=== PATIENT | female | born 1960 | race Caucasian/White ===

== ENCOUNTER 2017-01-25 08:00 | Emergency (ER) | payer MEDICARE ==
[2017-01-25 08:50] VITALS: BP 170/81
[2017-01-25] MEDS ORDERED: BSS OPTH.SOL* BTL OPHTHALMIC ONE (09:05)
[2017-01-25] MEDS ORDERED: Fluorescein Sodium TOPICAL* 1 MG TEST OPHTHALMIC ONE (09:05)
--- NOTE | 2017-01-25 09:13 | UC ---
Eye Complaint HPI - HPI Summary HPI Summary: complaint of wakng up 4 days ago and had difficulty taking out her contacts since then her left eye has been itchy purulent discharge sometimes feels like something is in her left eye right eye redness started yesterday using a warm compress without relief denies vision changes hasn't been wearting contact lenses - History of Current Complaint Chief Complaint: UCEye Stated Complaint: EYE COMPLAINT Time Seen by Provider: 01/25/17 09:05 Hx Obtained From: Patient Hx Last Menstrual Period: hysterectomy - Allergies/Home Medications Allergies/Adverse Reactions: Allergies Allergy/AdvReac Type Severity Reaction Status Date / Time Codeine Allergy Nausea And Verified 04/11/16 07:51 Vomiting Home Medications: Home Medications Polyvinyl Alcohol-Povidone (Op [Refresh 1.4-0.6 %] 01/25/17 [History] PMH/Surg Hx/FS Hx/Imm Hx Previously Healthy: Yes Endocrine History Of: Reports: Thyroid Disease Denies: Diabetes Cardiovascular History Of: Denies: Cardiac Disorders, Hypertension Respiratory History Of: Denies: COPD, Asthma, Pneumonia, Pulmonary Embolism GI/ History Of: Denies: Ulcer, Kidney Stones Neurological History Of: Reports: Migraine Denies: TIA, CVA, Dementia, Seizures Psychological History Of: Reports: Anxiety, Depression, Bipolar Disorder Denies: Schizophrenia Cancer History Of: Denies: Lung Cancer, Breast Cancer Other History Of: Negative For: Anticoagulant Therapy - Surgical History Surgical History: Yes Surgery Procedure, Year, and Place: hysterectomy breast augmentation. CHEST TUBE FOR PNEUMOTHORAX - Family History Known Family History: Positive: Unknown, Hypertension - Social History Occupation: Employed Full-time Lives: With Family Alcohol Use: None Alcohol Amount: 8 months sober Substance Use Type: None Substance Use Comment - Amount & Last Used: 10 MONTHS SOBER OF 04/02/16 Smoking Status (MU): Current Every Day Smoker Type: Cigarettes Amount Used/How Often: 2 ppd Length of Time of Smoking/Using Tobacco: 40 years Have You Smoked in the Last Year: Yes Household Exposure Type: Cigarettes Cessation Counseling: Patient Advised to Stop - Immunization History Most Recent Influenza Vaccination: 3 + years ago Most Recent Tetanus Shot: <5 YEARS ( OF 04/02/16) Most Recent Pneumonia Vaccination: n/a Review of Systems Constitutional: Negative Skin: Negative Eyes: Drainage, Eye Redness, Photophobia ENT: Negative Respiratory: Negative Cardiovascular: Negative Gastrointestinal: Negative Genitourinary: Negative Motor: Negative Neurovascular: Negative Musculoskeletal: Negative Neurological: Negative Psychological: Negative All Other Systems Reviewed And Are Negative: Yes Physical Exam Triage Information Reviewed: Yes Appearance: No Pain Distress, Well-Nourished Vital Signs: Initial Vital Signs Temp 98.1 F 01/25/17 08:34 Pulse 67 01/25/17 08:34 Resp 16 01/25/17 08:34 BP 170/81 01/25/17 08:34 Pulse Ox 99 01/25/17 08:34 Vital Signs Reviewed: Yes Eyes: Positive: Conjunctiva Inflamed - bilateral, Discharge, Other: - left eye- observed under fluoriscene- 3mm abrasion on cornea ENT: Positive: Pharynx normal, TMs normal Respiratory: Positive: Lungs clear, Normal breath sounds, No respiratory distress Cardiovascular: Positive: RRR, No Murmur, Pulses Normal Musculoskeletal Exam: Normal Neurological: Positive: Alert Psychological Exam: Normal Skin Exam: Normal Eye Complaint Course/Dx - Differential Dx/Diagnosis Differential Diagnosis/HQI/PQRI: Conjunctivitis, Corneal Abrasion Provider Diagnoses: left corneal abrasion, bilateral conjunctivitis, elevated blood pressure Discharge - Discharge Plan Condition: Stable Disposition: HOME Prescriptions: Erythromycin TOPICAL GEL* [Erythromycin OPTH OINT*] 1 applic TOPICAL TID #1 oint Patient Education Materials: Corneal Abrasion (ED), Conjunctivitis (ED) Referrals: Teresita Murphy MD [Primary Care Provider] - Michael Graham MD [Medical Doctor] - Additional Instructions: You have a corneal abrasion in left eye and conjunctivitis in both eyes start medication as directed please call Dr Graham for further evaluation and treatment on 01/26/17 CONJUNCTIVITIS What is Conjunctivitis? Conjunctivitis is redness and swelling of the conjunctiva, the thin transparent layer that lines the inner eyelid and covers the white part of the eye. The three main types of conjunctivitis are infectious, allergic, and chemical. The infectious type, commonly called "pink eye," is caused by a contagious virus or by bacteria. Your body's allergies to pollen, cosmetics, animals or fabrics often bring on allergic conjunctivitis. Irritants like air pollution, noxious fumes and chlorine in swimming pools may produce the chemical form. Symptoms Might Include: More tearing Eye pain Redness in the eyes Gritty feeling in the eyes Itching of the eye Blurred vision Sensitivity to light Crusts that form on the eyelid overnight Treatment Recommendations: Use eye drops or ointment as directed. Do not rub or touch your eyes. Wash your hands frequently. Use cool compresses to relieve pain and itching. Prevention: Do not share eye make-up. Replace eye make-up frequently. Do not share towels, washcloths, etc. Do not share eye drops. Do not wear contact lenses Call Your Doctor or Return Here IF: Your symptoms worsen or do not improve in 3 to 4 days. You have problems with, or loss of, your vision. You have a significant increase in pain. You have any new symptoms that worry you. Your blood pressure is elevated. Please contact your primary care provider within 1 -4 weeks for further evaluation.
[2017-01-25] MEDS ORDERED: Tetracaine 0.5% OPTH.SOL 4 ML* 1 DROP BTL LEFT EYE ONE (09:22)
== END 2017-01-25 09:30 | disposition home or self-care (01) ==
LOC: UCEAST 08:00
DX: H18.822 Corneal disorder due to contact lens, left eye (principal); H10.33 Unspecified acute conjunctivitis, bilateral; R03.0 Elevated blood-pressure reading, without diagnosis of hypertension; E07.9 Disorder of thyroid, unspecified; G43.909 Migraine, unspecified, not intractable, without status migrainosus; F41.9 Anxiety disorder, unspecified; F31.9 Bipolar disorder, unspecified; Z90.710 Acquired absence of both cervix and uterus; Z88.5 Allergy status to narcotic agent; F17.210 Nicotine dependence, cigarettes, uncomplicated
CPT/HCPCS: 99212; A9270-GY; G0463

== ENCOUNTER 2018-02-01 10:21 | Emergency (ER) | payer MEDICARE ==
[2018-02-01] MEDS ORDERED: NS 0.9% 1000 ML* 1,000 ML IV ONE (10:39)
[2018-02-01 10:59] LABS: ABS Basophils 0.1 10^3/ul (0-0.2); ABS Eosinophils 0.2 10^3/ul (0-0.6); ABS Lymphocytes 2.2 10^3/ul (1.0-4.8); ABS Monocytes 0.7 10^3/ul (0-0.8); ABS Neutrophils 9.9 10^3/ul (1.5-7.7); ABS Nucleated RBC 0 10^3/ul; Eosinophil % 1.4 % (0-6); Hematocrit 45 % (35-47); Hemoglobin 14.9 g/dl (12.0-16.0); Lymphocyte % 17.2 % (25-47); Mean Corpuscular HGB Conc 33 g/dl (31-36); Mean Corpuscular Hemoglobin 31 pg (27-31); Mean Corpuscular Volume 93 fL (80-97); Mean Platelet Volume 10.5 um3 (7.4-10.4); Nucleated Red Blood Cells % 0.1; Platelet Count 244 10^3/ul (150-450); Red Blood Count 4.87 10^6/ul (4.0-5.4); Red Cell Distribution Width 14 % (10.5-15)
--- NOTE | 2018-02-01 12:11 | RAD ---
INDICATION: Constipation and abdominal pain COMPARISON: KUB dated April 15, 2013 TECHNIQUE: Supine and upright views of the abdomen were obtained. FINDINGS: There is a large amount of stool seen throughout the length of the colon. The stool filled rectum measures just under 8 cm in diameter. There is no radiographically apparent wall thickening or evidence of free intraperitoneal gas. No grossly abnormal or pathologic appearing calcifications are noted. Visualized bones are within normal limits for the patient's age. IMPRESSION: Radiographic findings are consistent with constipation.
[2018-02-01 12:20] LABS: Urine Appearance Clear; Urine Blood 1+ (Negative); Urine Color Straw; Urine Ketones Negative (Negative); Urine Protein Negative (Negative); Urine Specific Gravity 1.004 (1.010-1.030); Urine Urobilinogen Negative (Negative)
[2018-02-01] MEDS ORDERED: Polyethylene Glycol 3350* 17 GM PACKET PO PRN (12:24)
[2018-02-01] MEDS ORDERED: Magnesium CITRATE* 300 ML BTL PO ONE (12:24)
[2018-02-01] MEDS ORDERED: Magnesium CITRATE* 300 ML BTL ONE (12:50)
[2018-02-01] MEDS ORDERED: Mineral Oil ENEMA* 1 BOTTLE PR ONE (12:54)
[2018-02-01 13:14] VITALS: BP 165/105
--- NOTE | 2018-02-01 13:52 | ED ---
Elvin Blair Angela, scribed for Lukas Ibrahim MD on 02/01/18 at 1049 . GI/ HPI - HPI Summary HPI Summary: This pt is a 57 y/o female [facility] c/o constipation for the past 4 days. Pt reports she cannot move her bowels when she's outside of her own house. She states that 4 days ago she traveled to her sister's house (in [place]) and took a Colace 3 days ago and 2 days ago. Pt usually takes Colace when she travels. She then traveled to [place] and was not able to have a bowel movement either. Pt reports that she usually has a bowel movement every other day, this is regular for her. She has been straining for the past 4 days with no bowel movements. Pt only sees some stool on the toilet paper when she wipes. Pt currently c/o abd pain, abd distension, constipation. She states her abd "it feels like a rock." Pt has been passing some gas, the last time was yesterday. She has not passed any gas today. PMHx includes hysterectomy. Pt has never had a colonoscopy. - History of Current Complaint Chief Complaint: Caroline Stated Complaint: CONSTIPATION Hx Obtained From: Patient Hx Last Menstrual Period: hysterectomy Onset/Duration: Started Days Ago - 4, Still Present Timing: Lasting Days - 4 Current Severity: Severe Pain Intensity: 6 Location of Pain: Diffuse Associated Signs and Symptoms: Positive: Constipation, Abdominal Pain. Negative : Nausea, Vomiting, Fever, Chills, Chest Pain Aggravating Factor(s): Nothing Alleviating Factor(s): Nothing - Allergy/Home Medications Allergies/Adverse Reactions: Allergies Allergy/AdvReac Type Severity Reaction Status Date / Time codeine Allergy Nausea Verified 02/01/18 10:36 Home Medications: Home Medications Levothyroxine TAB* [Synthroid TAB*] 112 mcg PO DAILY 02/01/18 [History Confirmed 02/01/18] [place] Carbonate ER (NF) [[place] Carbonate ER] 600 mg PO BID 02/01/18 [ History Confirmed 02/01/18] PMH/Surg Hx/FS Hx/Imm Hx Endocrine/Hematology History: Reports: Hx Thyroid Disease Denies: Hx Anticoagulant Therapy, Hx Blood Disorders, Hx Blood Transfusions, Hx Bone Marrow Disease, Hx Diabetes, Hx Systemic Lupus Erythematosus, Hx Sickle Cell Disease, Hx Anemia, Hx Unexplained Bleeding, Other Endocrine/Hematological Disorders Cardiovascular History: Denies: Hx Hypertension Respiratory History: Denies: Hx Asthma, Hx Chronic Bronchitis, Hx Chronic Obstructive Pulmonary Disease (COPD), Hx Cystic Fibrosis, Hx Lung Cancer, Hx Pleural Effusion, Hx Pneumonia, Hx Pulmonary Edema, Hx Pulmonary Embolism, Hx Seasonal Allergies, Hx Sleep Apnea, Other Respiratory Problems/Disorders GI History: Denies: Hx Ulcer History: Denies: Hx Kidney Stones Sensory History: Reports: Hx Contacts or Glasses Denies: Hx Cataracts, Hx Eye Injury, Hx Eye Prosthesis, Hx Glaucoma, Hx Legally Blind, Hx Macular Degeneration, Hx Vision Problem, Hx Deafness, Hx Hearing Aid, Hx Hearing Problem, Other Sensory Impairments Opthamlomology History: Reports: Hx Contacts or Glasses Denies: Hx Cataracts, Hx Eye Injury, Hx Eye Prosthesis, Hx Glaucoma, Hx Legally Blind, Hx Macular Degeneration, Hx Vision Problem, Other Sensory Impairments Neurological History: Reports: Hx Migraine Denies: Hx Dementia, Hx Developmental Delay, Hx Headaches, Hx Nerve Disease, Hx Seizures, Hx Spinal Cord Injury, Hx Transient Ischemic Attacks (TIA), Other Neuro Impairments/Disorders Psychiatric History: Reports: Hx Anxiety, Hx Attention Deficit Hyperactivity Disorder, Hx Eating Disorder, Hx Depression, Hx Inpatient Treatment, Hx Community Mental Health Tx, Hx Bipolar Disorder, Hx Suicide Attempt, Hx Substance Abuse Denies: Hx Panic Disorder, Hx Post Traumatic Stress Disorder, Hx Schizophrenia, Hx of Violent Episodes Against Others, Other Psychiatric Issues/ Disorders - Cancer History Hx Chemotherapy: No Hx Radiation Therapy: No - Surgical History Surgery Procedure, Year, and Place: hysterectomy breast augmentation. CHEST TUBE FOR PNEUMOTHORAX Hx Anesthesia Reactions: No - Immunization History Date of Tetanus Vaccine: Unknown Date of Influenza Vaccine: None Infectious Disease History: No Infectious Disease History: Denies: Hx Clostridium Difficile, Hx Hepatitis, Hx Human Immunodeficiency Virus (HIV), Hx of Known/Suspected MRSA, Hx Shingles, Hx Tuberculosis, Hx Known/ Suspected VRE, Hx Known/Suspected VRSA, History Other Infectious Disease, Traveled Outside the [place] in Last 30 Days - Family History Known Family History: Positive: Hypertension - Social History Alcohol Use: None Alcohol Amount: 8 months sober Substance Use Type: Reports: None Substance Use Comment - Amount & Last Used: 10 MONTHS SOBER OF 04/02/16 Smoking Status (MU): Current Every Day Smoker Type: Cigarettes Amount Used/How Often: 2 ppd Length of Time of Smoking/Using Tobacco: 40 years Have You Smoked in the Last Year: Yes Review of Systems Negative: Fever, Chills Negative: Chest Pain Negative: Shortness Of Breath Gastrointestinal: Other - abd distension, constipation Positive: Abdominal Pain. Negative: Vomiting, Nausea Neurological: Negative All Other Systems Reviewed And Are Negative: Yes Physical Exam - Summary Physical Exam Summary: VITAL SIGNS: Reviewed. GENERAL: Patient is a well-developed and nourished female who is lying comfortable in the stretcher. Patient is not in any acute respiratory distress. HEAD AND FACE: No signs of trauma. No ecchymosis, hematomas or skull depressions. No sinus tenderness. EYES: PERRLA, EOMI x 2, No injected conjunctiva, no nystagmus. EARS: Hearing grossly intact. Ear canals and tympanic membranes are within normal limits. MOUTH: Oropharynx within normal limits. NECK: Supple, trachea is midline, no adenopathy, no JVD, no carotid bruit, no c- spine tenderness, neck with full ROM. CHEST: Symmetric, no tenderness at palpation LUNGS: Clear to auscultation bilaterally. No wheezing or crackles. CVS: Regular rate and rhythm, S1 and S2 present, no murmurs or gallops appreciated. ABDOMEN: Soft, non-tender. No signs of distention. No rebound no guarding, and no masses palpated. Decreased bowel sounds. EXTREMITIES: FROM in all major joints, no edema, no cyanosis or clubbing. NEURO: Alert and oriented x 3. No acute neurological deficits. Speech is normal and follows commands. SKIN: Dry and warm Triage Information Reviewed: Yes Vital Signs On Initial Exam: Initial Vitals Temp Pulse Resp BP Pulse Ox 98.1 F 75 16 148/112 99 02/01/18 10:30 02/01/18 10:30 02/01/18 10:30 02/01/18 10:30 02/01/18 10:30 Vital Signs Reviewed: Yes Diagnostics - Vital Signs Vital Signs Temp Pulse Resp BP Pulse Ox 02/01/18 10:30 98.1 F 75 16 148/112 99 - Laboratory Lab Results: Lab Results 02/01/18 02/01/18 02/01/18 Range/Units 10:46 10:46 12:04 WBC 13.0 H (3.5-10.8) 10^3/ul RBC 4.87 (4.0-5.4) 10^6/ul Hgb 14.9 (12.0-16.0) g/dl Hct 45 (35-47) % MCV 93 (80-97) fL MCH 31 (27-31) pg MCHC 33 (31-36) g/dl RDW 14 (10.5-15) % Plt Count 244 (150-450) 10^3/ul MPV 10.5 H (7.4-10.4) um3 Neut % (Auto) 75.7 (38-83) % Lymph % (Auto) 17.2 L (25-47) % [place] % (Auto) 5.2 (0-7) % Eos % (Auto) 1.4 (0-6) % Baso % (Auto) 0.5 (0-2) % Absolute Neuts (auto) 9.9 H (1.5-7.7) 10^3/ul Absolute Lymphs (auto) 2.2 (1.0-4.8) 10^3/ul Absolute Monos (auto) 0.7 (0-0.8) 10^3/ul Absolute Eos (auto) 0.2 (0-0.6) 10^3/ul Absolute Basos (auto) 0.1 (0-0.2) 10^3/ul Absolute Nucleated RBC 0 10^3/ul Nucleated RBC % 0.1 Sodium 141 (139-145) mmol/L Potassium 3.9 (3.5-5.0) mmol/L Chloride 105 (101-111) mmol/L Carbon Dioxide 28 (22-32) mmol/L Anion Gap 8 (2-11) mmol/L BUN 19 (6-24) mg/dL Creatinine 1.14 H (0.51-0.95) mg/dL Est GFR ( Amer) 63.0 (>60) Est GFR (Non-Af Amer) 49.0 (>60) BUN/Creatinine Ratio 16.7 (8-20) Glucose 134 H (70-100) mg/dL Calcium 10.2 (8.6-10.3) mg/dL Total Bilirubin 0.40 (0.2-1.0) mg/dL AST 33 (13-39) U/L ALT 41 (7-52) U/L Alkaline Phosphatase 72 (34-104) U/L C-Reactive Protein 1.18 (< 5.00) mg/L Total Protein 7.2 (6.4-8.9) g/dL Albumin 4.4 (3.2-5.2) g/dL Globulin 2.8 (2-4) g/dL Albumin/Globulin Ratio 1.6 (1-3) Lipase 20 (11.0-82.0) U/L Urine Color Straw Urine Appearance Clear Urine pH 7.0 (5-9) Ur Specific [place] 1.004 L (1.010-1.030) Urine Protein Negative (Negative) Urine Ketones Negative (Negative) Urine Blood 1+ A (Negative) Urine Nitrate Negative (Negative) Urine Bilirubin Negative (Negative) Urine Urobilinogen Negative (Negative) Ur Leukocyte Esterase Negative (Negative) Urine WBC (Auto) Trace(0-5/hpf) (Absent) Urine RBC (Auto) Trace(0-2/hpf) (Absent) Ur Squamous Epith Cells Present A (Absent) Urine Bacteria 1+ A (Absent) Urine Glucose Negative (Negative) Result Diagrams: 02/01/18 10:46 02/01/18 10:46 Lab Statement: Any lab studies that have been ordered have been reviewed, and results considered in the medical decision making process. - Radiology Abdomen XR Xray Interpretation: Positive (See Comments) - IMPRESSION: Radiographic findings are consistent with constipation. Dr. Ibrahim has reviewed this radiology report. Radiology Interpretation Completed By: Radiologist - EKG 11:01 Cardiac Rate: NL - at 67 bpm EKG Rhythm: Sinus Rhythm EKG Interpretation: RBBB. EKG Comparison: No Significant Change - unchanged from prior EKG on 03/25/14. Re-Evaluation - Re-Evaluation First Eval Re-Evaluation Time: 12:50 Comment: I discussed lab and imaging results with the pt. She will be discharged home with a prescription for Miralax. GIGU Course/Dx - Course Assessment/Plan: This patient is a 57-year-old female who presents to the emergency department with chief complaint of having history of constipation and now she has not had a bowel movement since last Wednesday. She reports that she is now passing gas this morning. She has history of hysterectomy many years ago. Blood work without any significant abnormality except for WBCs of 13, no bandemia, creatinine 1.14 and glucose 134. Urinalysis negative for UTI. Patient declined rectal exam. Abdominal x-ray impression: Retrographic findings are consistent with constipation. In the ED course the patient was given IV fluids, I order MiraLAX, lactulose, magnesium citrate and a Fleet enema. Patient prefers to take this at home therefore she wanted to be discharged with the medications. Therefore the patient was given medications and discharged home with follow-up with primary care physician. I discussed all the findings and test results with the patient. Patient was instructed to return to the emergency room immediately if any of the symptoms return or worsens. Plan of care was discussed with the patient and understands and agrees. All questions were answered at patient satisfaction. There were no further complaints or concerns. Lung exam before discharge: CTA B/L. Good air exchange. No wheezing or crackles heard. CVS: S1 and S2 present. No murmurs appreciated. Patient is alert and oriented x 3. Patient is hemodynamically stable. Patient will be discharged home with follow up PCP in the next 2-3 days - Diagnoses Provider Diagnoses: Constipation Discharge - Sign-Out/Discharge Documenting (check all that apply): Discharge/Admit/Transfer - Discharge - Discharge Plan Condition: Stable Disposition: HOME Prescriptions: Polyethylene Glycol 3350* [Miralax*] 17 gm PO DAILY #12 packet Patient Education Materials: Constipation (ED) Referrals: Teresita Murphy MD [Primary Care Provider] - 3 Days Additional Instructions: Please follow up with your primary care provider. RETURN TO THE ED FOR ANY NEW OR WORSENING SYMPTOMS. - Billing Disposition and Condition Condition: STABLE Disposition: Home The documentation as recorded by the Elvin glaser Angela accurately reflects the service I personally performed and the decisions made by me, Lukas Ibrahim MD.
== END 2018-02-01 13:13 | disposition home or self-care (01) ==
LOC: ED 10:21
DX: K59.00 Constipation, unspecified (principal); F17.210 Nicotine dependence, cigarettes, uncomplicated; Z90.710 Acquired absence of both cervix and uterus; Z88.5 Allergy status to narcotic agent
CPT/HCPCS: 36415; 74019; 80053; 81003; 81015; 83690; 85025; 86140; 87086; 93005; 96360; 99282; A9270-GY

== ENCOUNTER 2019-04-03 11:51 | Emergency (ER) | payer MEDICARE ==
[2019-04-03 12:26] VITALS: BP 133/88
--- NOTE | 2019-04-03 12:41 | UC ---
Head Injury HPI - HPI Summary HPI Summary: 58-year-old female presents stating that around 10:00 AM this morning she was at [facility] and was reaching for an item on a top shelf when she fell over backwards and struck the back of her head on the concrete floor. No loss of consciousness. Complains of headache. Has full recollection of the events immediately before and after the incident. States she drove home and developed a brief episode of blurred vision and dizziness that lasted approximately 30 minutes. The symptoms subsided but the headache persisted so she came for evaluation. Patient states that she is now having some mild nausea. Denies slurred or difficulty speaking, facial droop, numbness, tingling, or weakness of the extremities, chest pain, palpitations, vomiting, or any other injury. - History Of Current Complaint Chief Complaint: UCHeadInjury Stated Complaint: HEAD INJURY Time Seen by Provider: 04/03/19 12:32 Hx Obtained From: Patient Hx Last Menstrual Period: hysterectomy Pain Intensity: 8 - Allergies/Home Medications Allergies/Adverse Reactions: Allergies Allergy/AdvReac Type Severity Reaction Status Date / Time codeine Allergy Nausea Verified 04/03/19 12:27 PMH/Surg Hx/FS Hx/Imm Hx Endocrine History: Hypothyroidism Psychological History: Bipolar Disorder Other History Of: Negative For: Anticoagulant Therapy - Surgical History Surgical History: Yes Surgery Procedure, Year, and Place: hysterectomy breast augmentation. CHEST TUBE FOR PNEUMOTHORAX - Family History Known Family History: Positive: Hypertension - Social History Occupation: Disabled Lives: With Family Alcohol Use: None Alcohol Amount: 8 months sober Substance Use Type: None Substance Use Comment - Amount & Last Used: 10 MONTHS SOBER OF 04/02/16 Smoking Status (MU): Current Every Day Smoker Type: Cigarettes Amount Used/How Often: 2 ppd Length of Time of Smoking/Using Tobacco: 40 years Have You Smoked in the Last Year: Yes Household Exposure Type: Cigarettes - Immunization History Most Recent Influenza Vaccination: 3 + years ago Most Recent Tetanus Shot: <5 YEARS ( OF 04/02/16) Most Recent Pneumonia Vaccination: n/a Review of Systems All Other Systems Reviewed And Are Negative: Yes Constitutional: Positive: Negative Skin: Negative: Bruising Eyes: Positive: Blurred Vision. Negative: Diplopia, Photophobia Respiratory: Positive: Negative Cardiovascular: Positive: Negative Gastrointestinal: Positive: Nausea. Negative: Abdominal Pain, Vomiting, Diarrhea Genitourinary: Positive: Negative Musculoskeletal: Positive: Negative Neurological: Positive: Headache. Negative: Weakness, Paresthesia, Numbness Is Patient Immunocompromised?: No Physical Exam - Summary Physical Exam Summary: GENERAL APPEARANCE: Alert and cooperative, and appears to be in no acute distress. HEAD: Normocephalic. Small hematoma noted to right occipital scalp. No crepitus or deformity noted. EYES: Conjunctiva clear. No drainage. PERRL, EOM intact. Vision is grossly intact. EARS: External auditory canals and tympanic membranes clear, hearing grossly intact. NOSE: No nasal discharge. THROAT: Pharynx normal. NECK: Midline cervical spine tenderness without deformity. No soft tissue tenderness or spasm. Full painless ROM. CARDIAC: Normal S1 and S2. No S3, S4 or murmurs. Rhythm is regular. There is no peripheral edema, cyanosis or pallor. Extremities are warm and well perfused. Capillary refill is less than 2 seconds. Peripheral pulses intact. LUNGS: Clear to auscultation without rales, rhonchi, wheezing or diminished breath sounds. ABDOMEN: Positive bowel sounds. Soft, nondistended, nontender. No guarding or rebound. No masses or hepatosplenomegally. MUSKULOSKELETAL: ROM intact to all extremities. No joint erythema or tenderness. Normal muscular development. Normal gait. BACK: Examination of the spine reveals normal gait and posture, no spinal deformity or tenderness, decreased range of motion or muscular spasm. NEUROLOGICAL: CN II-XII intact. Strength and sensation symmetric and intact throughout. Reflexes 2+ throughout. Cerebellar testing normal. SKIN: Skin normal color, texture and turgor. Triage Information Reviewed: Yes Vital Signs: Initial Vital Signs Temp 98.2 F 04/03/19 12:23 Pulse 70 04/03/19 12:23 Resp 16 04/03/19 12:23 BP 133/88 04/03/19 12:23 Pulse Ox 100 04/03/19 12:23 Vital Signs Reviewed: Yes Diagnostics - Radiology No standard instances Radiology Interpretation Completed By: Radiologist Summary of Radiographic Findings: Order Information: CT BRAIN WO. Accession Number: [id number]. CPT: 86479. Indication: Fall, head injury. CT of the brain performed without IV contrast. No prior study is available. Ventricular structures are midline. No midline shift is noted. Extra-axial spaces are unremarkable. Mastoid air cells and paranasal sinuses are unremarkable. IMPRESSION: No intracranial mass or hemorrhage is noted. Order Information: CT SPINE CERVICAL W/O. Accession Number: [id number]. CPT: 19910. INDICATION: Trauma. COMPARISON: Comparison is made with a prior x-ray study from October 10, 2009. TECHNIQUE: Contiguous axial sections were obtained from the skull base through the T2 vertebra. Images were reconstructed in the sagittal and coronal planes. FINDINGS: VERTEBRA: The vertebra are in normal alignment. No prevertebral soft tissue swelling or fracture is seen. C2-C3: No significant spinal canal or neural foraminal narrowing is seen. C3-C4: There is mild posterior uncinate process spurring and a small central disc protrusion. No spinal canal or neural foraminal narrowing is seen. C4-C5: There is mild posterior uncinate process spurring and a small central disc protrusion. No spinal canal narrowing is present. There is mild neural foraminal narrowing on the right side. C5-C6: No significant spinal canal or neural foraminal narrowing is seen. C6-C7: There is mild posterior uncinate process spurring. No spinal canal or neural foraminal narrowing is seen. LUNG APICES: The lung apices appear clear. IMPRESSION: 1. NO EVIDENCE FOR FRACTURE. 2. MILD CERVICAL SPONDYLOSIS DESCRIBED. Head Injury Course/Dx - Course Course Of Treatment: 58-year-old female presents stating that around 10:00 AM this morning she was at [facility] and was reaching for an item on a top shelf when she fell over backwards and struck the back of her head on the concrete floor. No loss of consciousness. Complains of headache. Has full recollection of the events immediately before and after the incident. States she drove home and developed a brief episode of blurred vision and dizziness that lasted approximately 30 minutes. The symptoms subsided but the headache persisted so she came for evaluation. Patient states that she is now having some mild nausea. Denies slurred or difficulty speaking, facial droop, numbness, tingling, or weakness of the extremities, chest pain, palpitations, vomiting, or any other injury. Afebrile. Vital signs stable. Patient had a small hematoma noted to the occipital scalp. She complained of midline cervical tenderness with palpation without soft tissue tenderness or spasm however she did have full range of motion of the neck without pain. Patient was neurologically intact and remainder of her exam was unremarkable. Because of her earlier symptoms of visual disturbances and dizziness and the midline cervical tenderness I obtained a CT of the head and cervical spine which both showed no acute pathology. Results were reviewed with the patient. She had been given ondansetron 4 mg by mouth for the nausea with improvement. Recommending conservative treatment for a concussion without loss of consciousness. She is to follow-up with her primary care provider in 3 days for recheck of symptoms. Anticipatory guidance and warning symptoms were reviewed with the patient. Verbalizes understanding and agrees with plan of care. - Differential Dx/Diagnosis Differential Diagnosis/HQI/PQRI: Cerebral Contusion, Concussion Without LOC, Skull Fracture Provider Diagnosis: Concussion without loss of consciousness, Cervical strain Discharge - Sign-Out/Discharge Documenting (check all that apply): Patient Departure All imaging exams completed and their final reports reviewed: No Studies - Discharge Plan Condition: Stable Disposition: HOME Patient Education Materials: Concussion (ED), Cervical Strain (ED) Referrals: Teresita Murphy MD [Primary Care Provider] - 3 Days Additional Instructions: The CT of your head and neck performed in the clinic today were normal. Based on your history and exam you likely have a mild concussion. The most important thing you continue to help recover from a concussion is to get plenty of rest in a quiet environment. You should avoid activities that require concentration as well as all screens including television, computers, and cell phones while you're having symptoms. Use [id number] acetaminophen (Tylenol) or ibuprofen (Advil, Motrin) according to directions as needed for headache. Follow-up with your primary care provider in 3 days for recheck of your symptoms. Seek immediate medical attention in the emergency room if you have a worsening headache that is not managed with the acetaminophen or ibuprofen, you have one pupil that is larger than the other, develop any confusion, are difficult to arouse or have loss of consciousness, facial droop, slurred or difficulty speaking, have weakness, numbness, tingling in the arms or legs, or have any worsening of symptoms. - Billing Disposition and Condition Condition: STABLE Disposition: Home
[2019-04-03] MEDS ORDERED: Ondansetron ODT TAB* 4 MG PO ONE (12:52)
--- OUTSIDE RECORDS SUMMARY | 2019-04-03 18:05 | XMS REPORT | Continuity of Care Document ---
:1960 External Reference #:[id number] Author Name Teresita Holman O.D. Address [address] [facility] [place] [address] Care Team Providers Name Role Phone Teresita Murphy M.D. Primary Care Physician Unavailable Payers Date Identification Numbers Payment Provider Subscriber Policy Number: [id number] Medicare - [facility] ([place], [place]) Dalila Galvez PayID: [id number] [address] [place] [address] Problems Active Problems Provider Date H/O Malignant melanoma Onset: Migraine Makenzie Zaldivar O.D. Onset: 05/28/2015 Mucopurulent conjunctivitis Makenzie Zaldivar O.D. Onset: 05/28/2015 Corneal edema due to wearing of contact Makenzie Zaldivar O.D. Onset: 2014 lenses Tear film insufficiency Makenzie Zaldivar O.D. Onset: 06/01/2015 Injury of conjunctiva and corneal abrasion Teresita Holman O.D. Onset: 2015 without foreign body, right eye, initial encounter Conjunctivitis Deniz Robles M.D. Onset: 11/23/2016 Superficial punctate keratitis Teresita Holman O.D. Onset: 01/14/2017 Central corneal ulcer Teresita Holman O.D. Onset: 01/26/2017 Squamous blepharitis Michael Graham M.D. Onset: 02/04/2017 Hypermetropia Teresita Holman O.D. Onset: 03/12/2017 Presbyopia Teresita Holman O.D. Onset: 03/12/2017 Corneal opacity Teresita Holman O.D. 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 Erythromycin apply thin 1Tubes H16.141 Teresita Holman, 03/08/2019 5mg/GM strip to right O.D. Ointment eye twice a day Ciprofloxacin HCL 1 drop right 5ml H16.141 Teresita Holman, 03/08/2019 0.3% eye four times O.D. Solution a day Lid Scrubs once a day Unknown 02/18/2017 Synthroid Unknown History Medications Erythromycin Apply to all four 1Tube H01.021 Michael Lehman 02/04/2017 - 5mg/GM lids at bedtime Matt Graham 02/16/2017 Ointment for 3 weeks Prednisolone 1 drops Left Eye 10ml H16.012 Deniz 01/28/2017 - Acetate Four times a day. Matt Robles 02/18/2017 1% Suspension Tobramycin 1 drop left eye Michael Lehman 01/27/2017 - 0.3% every three hours Matt Graham 02/03/2017 Solution alternating Fortified 1 drop left eye Michael Lehman 01/27/2017 - Vancomycin every three hours Matt Graham 02/03/2017 25mg/ml alternating Vigamox one drop left eye 3ml H16.012 Teresita Vo 01/26/2017 - 0.5% every hour during River O.DMane 01/27/2017 Solution the day and night Erythromycin apply thin strip 1Tubes H16.141 Teresita Vo 01/14/2017 - 5mg/GM to right eye River, O.D. 01/27/2017 Ointment before bed Ofloxacin instill 1 drop 5ml H10.89 Deniz 11/23/2016 - (Ophthalmic) right eye four Matt Robles 01/11/2017 0.3% times a day Solution Polytrim 1 drop right eye 10ml Deniz 11/22/2016 - four times a day Matt Robles 01/11/2017 14719-1.1Unit/ML-% Solution Refresh Optive 1 drop right eye Deniz 11/22/2016 - four times a day Matt Robles 02/17/2017 0.5-0.9% Solution Erythromycin apply thin strip 1Tubes S05.01xA Teresita CookMane 08/04/2016 - 5mg/GM to right eye twice River O.D. 08/21/2016 Ointment a day Maxitrol place 0.5 inch 3.500gm Makenzie Encarnacion 06/01/2015 - strip in right eye Zen, O.D. 08/03/2016 3.5-66243-2.1 at night Ointment Polytrim 1 drop 4x/day 10ml 372.03 Makenzie Encarnacion 05/28/2015 - Right eye Zen O.D. 05/31/2015 32196-3.1Unit/ML-% Solution Tobradex place 0.5 inch 3.500gm 371.24 Makenzie Encarnacion 05/28/2015 - 0.3-0.1% strip in Right Eye Zen O.D. 05/31/2015 Ointment at night Gentamicin Sulfate 2 drop right eye Unknown - every 4 hours 08/07/2016 0.3% Solution Procedures Date Code Description Status 05/04/2018 07878 Determination Of Refractive State Completed 05/04/2018 28858 Est Patient Comprehensive Exam Completed 05/04/2018 519 Eyeglass Captain Fishing Vessel Completed 02/04/2017 87539 Computerized Corneal Topography Completed 02/04/2017 510 Eye Scrubs 30 Count Completed 08/04/2016 75316 Est Patient Intermediate Exam Completed 05/28/2015 08565 Est Patient Intermediate Exam Completed 06/08/2014 91844 Est Patient Comprehensive Exam Completed 05/24/2014 28972 Patient No Show For Appt Completed 03/19/2014 36459 Est Patient Intermediate Exam Completed 08/21/2013 69204 Determination Of Refractive State Completed 08/21/2013 01918 New Patient Intermediate Exam Completed 2009 58652 New Patient Intermediate Exam Completed Encounters Type Date Location Provider Dx Diagnosis Office Visit 08/18/2017 Teresita Suarez, H17.89 Other corneal 9:45a alexander HORNER O.D. scars and opacities Office Visit 02/18/2017 Deniz Suarez H16.012 Central corneal 8:45a alexander HORNER M.D. ulcer, left eye Office Visit 02/09/2017 Deniz Suarez H16.012 Central corneal 8:30a alexander HORNER M.D. ulcer, left eye Office Visit 02/04/2017 Michael Suarez, H16.012 Central corneal 11:30a alexander HORNER M.D. ulcer, left eye H01.021 Squamous blepharitis right upper eyelid H01.024 Squamous blepharitis left upper eyelid H01.022 Squamous blepharitis right lower eyelid H01.025 Squamous blepharitis left lower eyelid Office Visit 02/01/2017 8:15a Michael Lehman H16.012 Central corneal MD Gladys, alexander Graham M.D. ulcer, left eye Office Visit 01/30/2017 9:45a Michael Vo H16.012 Central corneal MD Gladys, alexander Holman O.D. ulcer, left eye Office Visit 01/29/2017 9:30a Michael Lehman H16.012 Central corneal MD Gladys, alexander Graham M.D. ulcer, left eye Office Visit 01/28/2017 11:15a Michael Guaman H16.012 Central corneal MD Gladys, halima Santos, left eye M.DMane Office Visit 01/27/2017 10:15a Michael Vo H16.012 Central corneal MD Gladys, alexander Holman O.D. ulcer, left eye Office Visit 01/26/2017 2:15p Michael Vo H16.012 Central corneal MD Gladys, alexander Holman O.D. ulcer, left eye Office Visit 01/14/2017 3:15p Michael Vo H16.141 Punctate keratitis , MD Gladys, alexander Holman O.D. right eye Office Visit 11/23/2016 8:45a Michael Guaman H10.89 Other conjunctivitis MD Gladys, alexander Robles M.D. Office Visit 08/07/2016 1:45p Michael Vo S05.01xD Inj conjunctiva and MD Gladys, alexander Holman O.D. corneal abrasion w/o fb, right eye, subs Office Visit 06/01/2015 1:00p Michael Encarnacion H04.123 Dry eye syndrome of MD Gladys, alexander Zaldivar O.D. bilateral lacrimal glands Office Visit 11/01/2009 1:30p Michael Lehman 372.11 Conjunctivitis MD Gladys, alexander Beckwith, Simple Chronic O.D. Office Visit 10/25/2009 11:10a Michael Lehman 077.99 Conjunctiva Disease MD Gladys, alexander Beckwith, Unspec Due To O.D. Viruses Office Visit 03/01/2008 1:45p Michael Encarnacion 367.0 Hypermetropia MD Gladys, alexander Zaldivar O.D. Plan of Treatment 03/08/2019 - Teresita Holman O.D.H16.141 Punctate keratitis, right eyeNew Medication:Erythromycin 5 mg/GM - apply thin strip to right eye twice a dayCiprofloxacin HCL 0.3 % - 1 drop right eye four times a dayComments:Smoking can increase the risk of developing or worsening any eye related disease, as well as affect your overall health. If you are a smoker, we strongly recommend that you quit.If you are not a smoker, we strongly recommend that you do not start. start ciprofloxacin drops 4 times a day in the righteyestart erythromycin twice a day in the left eyeFollow up:tomorrow evening
--- OUTSIDE RECORDS SUMMARY | 2019-04-03 18:05 | XMS REPORT | Continuity of Care Document ---
:1960 External Reference #:[id number] Author Name Teresita Holman O.D. Address [address] [facility] [place] [address] Care Team Providers Name Role Phone Teresita Murphy M.D. 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 08/21/2016 Ointment a day Maxitrol place 0.5 inch 3.500gm Makenzie Encarnacion 06/01/2015 - strip in right eye Zen, O.D. 08/03/2016 3.5-95190-0.1 at night Ointment Polytrim 1 drop 4x/day 10ml 372.03 Makenzie Encarnacion 05/28/2015 - Right eye Zen O.D. 05/31/2015 78862-2.1Unit/ML-% Solution Tobradex place 0.5 inch 3.500gm 371.24 Makenzie Encarnacion 05/28/2015 - 0.3-0.1% strip in Right Eye Zen O.D. 05/31/2015 Ointment at night Gentamicin Sulfate 2 drop right eye Unknown - every 4 hours 08/07/2016 0.3% Solution Procedures Date Code Description Status 05/04/2018 16086 Determination Of Refractive State Completed 05/04/2018 93432 Est Patient Comprehensive Exam Completed 05/04/2018 519 Eyeglass Orthopedic Radiologic Technologist Completed 02/04/2017 41602 Computerized Corneal Topography Completed 02/04/2017 510 Eye Scrubs 30 Count Completed 08/04/2016 62113 Est Patient Intermediate Exam Completed 05/28/2015 55846 Est Patient Intermediate Exam Completed 06/08/2014 77040 Est Patient Comprehensive Exam Completed 05/24/2014 24441 Patient No Show For Appt Completed 03/19/2014 28876 Est Patient Intermediate Exam Completed 08/21/2013 05314 Determination Of Refractive State Completed 08/21/2013 63369 New Patient Intermediate Exam Completed 2009 72342 New Patient Intermediate Exam Completed Encounters Type Date Location Provider Dx Diagnosis Office Visit 03/08/2019 Teresita Suarez, H16.141 Punctate 4:15p alexander HORNER O.D. keratitis, right eye Office Visit 08/18/2017 Teresita Suarez, H17.89 Other corneal 9:45a alexander HORNER O.D. scars and opacities Office Visit 02/18/2017 Deniz Suarez, H16.012 Central corneal 8:45a alexander HORNER M.D. ulcer, left eye Office Visit 02/09/2017 Deniz Suarez, H16.012 Central corneal 8:30a alexander HORNER M.D. [...] eye M.DMane Office Visit 01/27/2017 10:15a Michael J Teresita K. H16.012 Central corneal MD Gladys, alexander Holman [...] Gladys, alexander Zaldivar O.D. Plan of Treatment 03/09/2019 - Teresita Holman O.D.H16.141 Punctate keratitis, right eyeComments: Smoking can increase the risk of developing or worsening any eye related disease , as well as affect your overall health. If you are a smoker, we strongly recommend that you quit.If you are not a smoker, we strongly recommend that you do not start. continue ciprofloxacin drops 4 times a day for 3 days, continue ointment at bedtime for 3 daysif your symptoms persist beyond 3 days, or worsen , please call the office to be seenFollow up:as needed
--- OUTSIDE RECORDS SUMMARY | 2019-04-03 18:05 | XMS REPORT | Continuity of Care Document ---
:1960 External Reference #:[id number] Author Name Ivana Chavez Care Team Providers Name Role Phone Alber Venegas MD Care Team Information Social And Political Studies Professor Unavailable Teresita Murphy MD Primary Care Physician Unavailable Payers Date Identification Numbers Payment Provider Subscriber Policy Number: [id number] [facility] [employer] Dalila Galvez PayID: [id number] [address] [address] Attn: [place] [address] Family History Date Family Member(s) Observation Comments Father Coronary Artery Disease (CAD) 4 stents Father Hypercholesterolemia Father Kidney Stones Mother Hypercholesterolemia Mother Bipolar Disorder Siblings 2 2 sisters, - 1 sister with high cholsterol, osteopenia. Social History Type Date Description Comments Sex Unknown Marital Status Single Lives With Alone Occupation Currently Working after school program ETOH Use Denies alcohol use Tobacco Use Start: Unknown Patient is a current smoker, smokes every day Recreational Drug Use Denies Drug Use Tobacco Use Start: Unknown Heavy tobacco smoker 2 packs per day (more than 10 cigarettes/day) Smoking Status Reviewed: 03/21/19 Heavy tobacco smoker 2 packs per day (more than 10 cigarettes/day) Exercise Type/Frequency Does not exercise Allergies, Adverse Reactions, Alerts Active Allergies Reaction Severity Comments Date Codeine vomiting 03/21/2019 Medications Active Medications SIG Qnty Indications Ordering Provider Date [place] Carbonate 1 by mouth twice a Unknown 600mg day Capsules Lamotrigine ER 1 tablet twice Unknown 200mg daily Tablets ER 24HR Clonazepam 1-2 tablets daily Unknown 1mg Tablets a day as needed anxiety Latuda 2 by mouth every Unknown 60mg Tablets day at bedtime Sumatriptan Succinate take 1 tablet by Unknown mouth at onset of 25mg Tablets migraine,if headache persists,repeat in 2 hours Vital Signs Date Vital Result Comment 03/21/2019 12:14pm Height 63 inches 5'3" Weight 128.00 lb reported by pt. Heart Rate 60 /min BP Systolic Sitting 133 mmHg BP Diastolic Sitting 81 mmHg BMI (Body Mass Index) 22.7 kg/m2 Procedures Date Code Description Status 07/21/2006 34924 EKG, Interpretation Only Completed 07/21/2006 39640 EKG, Interpretation Only Completed Plan of Treatment 03/21/2019 - RAMIN Srivastava83.52 HypercalcemiaInstructions:1. Blood tests today. 2. 24 hour urine tests at your convenience. 3. Schedule a bone density test atyour convenience.Z13.820 Encounter for screening for osteoporosisNew Xrays:Dexa Bone Dens Axial Skeleton (Hips, Pelvis, Spine), Ordered: 03/21/19
== END 2019-04-03 14:21 | disposition home or self-care (01) ==
LOC: UCEAST 11:51
DX: S06.0X0A Concussion without loss of consciousness, initial encounter (principal); W18.39XA Other fall on same level, initial encounter; Y93.89 Activity, other specified; Y92.512 Supermarket, store or market as the place of occurrence of the external cause; Y99.8 Other external cause status; E03.9 Hypothyroidism, unspecified; F31.9 Bipolar disorder, unspecified; F17.210 Nicotine dependence, cigarettes, uncomplicated; Z88.5 Allergy status to narcotic agent
CPT/HCPCS: 70450; 72125; 99212; A9270-GY; G0463